=== PATIENT | female | born 1945 | race Caucasian/White ===

== ENCOUNTER 2019-03-26 10:48 | Inpatient (IN) | payer OTHER ==
[2019-03-21 12:10] LABS: HEMOGLOBIN 13.4 gm/dL (12.0-15.0); MCH 26.7 pg (26.0-34.0); MCHC 32.8 g/dL (28.0-37.0); MCV 81.4 fL (80.0-100.0); RBC 5.04 mil/uL (4.20-5.00); RDW 14.1 % (10.5-14.5); WBC 9.5 thou/uL (4.0-11.0)
[2019-03-21 12:12] LABS: URINE BILIRUBIN NEGATIVE (Negative); URINE BLOOD NEGATIVE (Negative); URINE CLARITY CLEAR; URINE COLOR YELLOW; URINE GLUCOSE-RANDOM* NEGATIVE (Negative); URINE KETONES NEGATIVE (Negative); URINE LEUKOCYTES-REFLEX TRACE (Negative); URINE NITRITE-REFLEX NEGATIVE (Negative); URINE PROTEIN (DIPSTICK) NEGATIVE (Negative); URINE UROBILINOGEN 0.2 E.U./dl (0.2-1.0)
[2019-03-21 12:19] LABS: ALBUMIN 3.8 g/dL (3.4-5.0); CALCIUM 9.7 mg/dL (8.5-10.1); CREATININE 0.9 mg/dL (0.6-1.0); POTASSIUM 4.1 mmol/L (3.5-5.1)
[2019-03-21 12:21] LABS: PROTIME 9.7 Seconds (9.3-11.4)
--- NOTE | 2019-03-23 17:51 | EKG ---
[address] [address] ELECTROCARDIOGRAM REPORT Name: SARAH FREITAS Room #: PRE IN [facility]#: [id number] Admission: Attend Phys: Eduardo Adler MD Discharge: Date of : 43 Report #: [id number] THIS REPORT FOR: //name// [facility] Test Date: 2019-03-21 Test Time: 12:11:27 Pat Name: SARAH FREITAS Department: Room: Gender: F Decker Operator: YOLA CRUZ : 1945 Requested By: Eduardo Adler Order Number: [id number] MD: Antwon Adams Measurements Intervals [place] Rate: 65 P: 89 CA: 151 QRS: 59 QRSD: 76 T: 60 QT: 391 QTc: 407 Interpretive Statements Sinus rhythm Abnormal R-wave progression, early transition No previous ECG available for comparison Electronically Signed On 03-23-2019 17:51:13 CDT by Antwon Adams [email or web address] <ELECTRONICALLY SIGNED> By: Antwon Adams MD, [facility] 03/23/19 1751 1211 1211 Antwon Adams MD, FACC /EPI
[~2019-03-26] VITALS: Ht 172.7 cm; Wt 96.2 kg
--- NOTE | ~2019-03-26 | O ---
[facility] [place] [address] OPERATIVE REPORT Name: SARAH FREITAS Room #: 418-P [facility] IN M.R.#: [id number] Admission: 03/26/19 Attend Phys: Eduardo Adler MD Discharge: Date of : 43 Report #: [id number] THIS REPORT FOR: //name// CC: KIERSTEN FERRELL Physician staff Eduardo Adler DATE OF SERVICE: 03/26/2019 PREOPERATIVE DIAGNOSIS: Left knee osteoarthritis. POSTOPERATIVE DIAGNOSIS: Left knee osteoarthritis. PROCEDURE: Left total knee arthroplasty using Navio robotic merchandising assistant. SURGEON: Eduardo Adler MD. LOCAL OWNER OPERATOR TRUCK DRIVER: Geetha Kaur PA-C. INDICATIONS FOR LOCAL OWNER OPERATOR TRUCK DRIVER: Throughout the case, extensive retraction and manipulation of the knee was required, this was afforded to me by my merchandising assistant. ANESTHESIA: LMA. IMPLANTS: Gonzalez [employer]hew size 6 Legion cobalt chrome posterior stabilized femur, size 5 tibia, size 12 polyethylene and size 35 patella. TOURNIQUET TIME: 55 minutes. ESTIMATED BLOOD LOSS: 25 mL COMPLICATIONS: None. SPECIMENS: None. CONDITION UPON LEAVING THE OPERATING ROOM: Stable. INDICATIONS FOR PROCEDURE: The patient is a 73-year-old female with severe left knee osteoarthritis. She failed conservative measures for this and after discussion with her, she elected for left total knee arthroplasty. DESCRIPTION OF PROCEDURE: Risks, benefits, alternatives, complications were discussed in detail with the patient including but not limited to risk of anesthesia, risk of damage to nerves, arteries, blood vessels, risk for infection, bleeding, risk for continued knee pain and need for reoperation. Informed consent was obtained from the patient. Left knee was appropriately [facility] [address] [place] [address] OPERATIVE REPORT Name: SARAH FREITAS Room #: 418-P [facility] IN M.R.#: [id number] Admission: 03/26/19 Attend Phys: Eduardo Adler MD Discharge: Date of : 43 Report #: [id number] marked in the preoperative holding area. IV Ancef was given for preoperative antibiotics. Adductor canal block was placed by Anesthesia. She was brought to the operating room and placed in supine position on operating room table. LMA anesthesia was induced without complication. Tourniquet was placed on the left thigh. Left lower extremity was prepped and draped in normal sterile fashion. Timeout was performed properly identifying the patient and procedure as well as the instrumentation. All in the operating room were in agreement. Left lower extremity was exsanguinated, tourniquet was inflated. Tourniquet time was 55 minutes. Standard midline approach to the knee was made with #10 blade through the skin. Dissection was taken down sharply to the fascia. Deep flaps were developed medially and laterally. Fresh #10 blade was used to make the medial parapatellar arthrotomy and the knee was inspected. There was severe tricompartmental osteoarthritis. ACL and PCL were removed sharply. Reference pins were placed in the femur and the tibia and the knee was digitally mapped using the [employer] robotic system. Intraoperative plan was made and we sized to a size 6 femur, a size 5 tibia with a size 11 spacer. After acceptance of the intraoperative plan, the distal femoral cut was made with a Navio bur. The size 6, 4-in-1 cutting block was placed. Anterior, posterior and chamfer cuts were made. Attention was then turned to the femur. The remainder of the menisci removed with Bovie cautery and the tibial resection guide was pinned in place using the Navio system for placement. Tibial resection was made. Flexion and extension gaps were then checked and found to have good balance in flexion and extension both medially and laterally. The tibia was sized, found to be a size 5. A size 5 tibial trial was placed, pinned and punched. A size 6 femoral trial was placed and the box cut was made. This was then trialed with a size 11 and then a size 12 polyethylene. The size 12 polyethylene showed a millimeter of laxity medially and laterally throughout range of motion. After this, 9 mm was taken off the posterior surface of the patella and a size 35 patellar trial button was placed. Knee was taken through range of motion, found to be stable, found to have good patellar tracking. After this, trial components were removed. Bony ends were thoroughly irrigated with normal saline. A final size 5 tibia, size 6 Legion cobalt chrome posterior stabilized femur and a size 35 patella were cemented in place using standard cementation techniques. While the cement cured, a periarticular injection consisting of morphine, ropivacaine, epinephrine and Toradol was placed around the knee joint capsule. After the cement cured, the tourniquet was deflated. Hemostasis was obtained with Bovie cautery. A final size 12 polyethylene was placed. A gram of vancomycin was placed deep in the joint. Fascia was closed with 0 Vicryl, skin was closed with 2-0 Vicryl, 3-0 Monocryl, Dermabond and a ABDIEL dressing was applied. The patient tolerated this procedure well and went to the recovery room under care of Anesthesia postoperatively. By: [id number] Eduardo Adler MD /raysa
[~2019-03-26 10:48] MED LIST: CALCIUM 600 +1 EAC1 PO; PEPCID AC10 MG PO; SERTRALINE HCL50 MG PO; SIMVASTATIN40 MG PO; SYNTHROID25 MC1 PO; TRIAMTERENE-HC1 EAC2 PO; VITAMIN D32000 UNI1 PO
[2019-03-26 12:38] VITALS: BP 144/67
[2019-03-26 16:26] VITALS: BP 122/52
--- NOTE | 2019-03-26 18:35 | NUR ---
ASSUMED CARE AT 1600, SHIFT ASSESSMENT DONE, MEDS GIVEN, VSS. REPORTED PAIN, PRN PAIN MEDS GIVEN. ON REGUALR DIET, TOLERATING WELL. ON 2L NC. ABDIEL DRESSING TO LEFT KNEE C/D/I. WILL CONTINUE TO ASSESS AND ASSIST WITH ADLs NEEDED.
[2019-03-26 20:10] VITALS: BP 150/66
[2019-03-26 20:30] VITALS: BP 150/66
[2019-03-27 00:01] VITALS: BP 127/61
--- NOTE | 2019-03-27 04:22 | NUR ---
Assumed pt care at 1900. Pt is A/OX4,VSS.Up with AX1 to BSC without difficulties. WBAT to LLE.ABDIEL dsg in place C/D/I.C/o pain to left knee LOP at 7 medicated with oxycodone with relief reported.Has an inspire stimulator in place,resting quietly with no distress at this time will continue to monitor pt. Call light/personal items within reach.
[2019-03-27 05:03] VITALS: BP 127/59
[2019-03-27 05:48] LABS: HEMATOCRIT 35.6 % (37.0-47.0); HEMOGLOBIN 11.3 gm/dL (12.0-15.0); MCH 26.4 pg (26.0-34.0); MCHC 31.8 g/dL (28.0-37.0); MCV 82.8 fL (80.0-100.0); RBC 4.31 mil/uL (4.20-5.00); RDW 13.7 % (10.5-14.5)
[2019-03-27] MEDS ORDERED: ASPIR 8181 MG PO (10:37)
--- NOTE | 2019-03-27 11:34 | NUR ---
ASSUMED CARE AT 0700, SHIFT ASSESSMENT DONE, MEDS GIVEN, VSS. REPORTED PAIN, PRN PAIN MEDS GIVEN. WORKED WITH PHYSICAL THERAPHY, WALKED IN THE HALLWAY, SITTING UP IN THE CHAIR. POSSIBLE DISCHARGE TODAY. WILL CONTINUE TO ASSESS AND ASSIST WITH ADLs NEEDED.
[2019-03-27 14:35] VITALS: BP 127/59
--- NOTE | 2019-03-27 15:24 | NUR ---
ASSESSMENT-PT LIVES AT HOME WITH HER . BOTH WERE INDEPENDENT OF ADLS AND AMBULATION PRIOR TO ADMISSION. BOTH DRIVE. PT PLANS TO DC HOME SOON AND NEEDS A ROLLER WALKER FOR HOME. OFFERED OPTIONS AND SHE CHOSE [employer]. PT PLANS TO START OUTPT THERAPY TOMORROW OR NEXT DAY AT [facility] IN [place]. PT WILL CALL TO SCHEDULE AN APPT. NO OTHER DC NEEDS IDENTIFIED AT THIS TIME.
== END 2019-03-27 15:31 | disposition home or self-care (01) | DRG 470 ==
LOC: TBA 10:48 → 4E 10:48 → PRE 11:08 → 4E 16:20
PROVIDERS: ADMIT Orthopaedic Surgery
PROC: 0SRD0J9 Replacement of Left Knee Joint with Synthetic Substitute, Cemented, Open Approach (ICD-10-PCS; principal; 2019-03-26)
PROC: 8E0Y0CZ Robotic Assisted Procedure of Lower Extremity, Open Approach (ICD-10-PCS; 2019-03-26)
DX: M17.12 Unilateral primary osteoarthritis, left knee (principal); E78.00 Pure hypercholesterolemia, unspecified; E03.9 Hypothyroidism, unspecified; K21.9 Gastro-esophageal reflux disease without esophagitis; F32.9 Major depressive disorder, single episode, unspecified; G47.30 Sleep apnea, unspecified; Z90.710 Acquired absence of both cervix and uterus; Z88.2 Allergy status to sulfonamides; Z88.8 Allergy status to other drugs, medicaments and biological substances; Z79.899 Other long term (current) drug therapy
CPT/HCPCS: 10783; 50010; 50101; 50415; 50954; 51130; 51225; 53000; 53078; 53364; 54118; 56527; 56528; 57095; 57103; 57110; 57127; 57180; 62110; 62900; 65060; 70005

== ENCOUNTER 2019-04-05 09:37 | Day surgery (SDC) | payer OTHER ==
[~2019-04-05] VITALS: Ht 175.3 cm; Wt 97.1 kg
--- NOTE | ~2019-04-05 | O ---
[facility] [place] [address] OPERATIVE REPORT Name: SARAH FREITAS Room #: 150-5 [facility] M.R.#: [id number] Admission: 04/05/19 Attend Phys: Eduardo Adler MD Discharge: Date of : 43 Report #: [id number] THIS REPORT FOR: //name// CC: KIERSTEN FERRELL Physician staff Eduardo Adler DATE OF SERVICE: 04/05/2019 PREOPERATIVE DIAGNOSIS: Left total knee arthroplasty hematoma. POSTOPERATIVE DIAGNOSIS: Left total knee arthroplasty hematoma. PROCEDURE: Evacuation of left knee hematoma, status post total knee arthroplasty. SURGEON: Eduardo Adler MD ANESTHESIA: LMA. ESTIMATED BLOOD LOSS: 25 mL. COMPLICATIONS: None. SPECIMENS: None. CONDITION UPON LEAVING THE OPERATING ROOM: Stable. INDICATIONS FOR PROCEDURE: The patient is a 73-year-old female about a week out from a left total knee arthroplasty. She has had persistent bloody drainage from her incision and an exam consistent with hematoma. After discussion with her, she elected for evacuation of her left knee hematoma. DESCRIPTION OF PROCEDURE: Risks, benefits, alternatives, complications were discussed in detail with the patient including but not limited to risk of anesthesia, risk of damage to nerves, arteries, blood vessels, risk for infection, bleeding, risk for continued drainage and need for reoperation. Informed consent was obtained from the patient. Left knee was appropriately marked in the preoperative holding area. IV Ancef was given for preoperative antibiotics. She was brought to the operating room and placed in supine position on the operating room table. LMA anesthesia was induced without complication. Left lower extremity was prepped and draped in normal sterile fashion. Timeout was performed properly identifying the patient and procedure as well as the instrumentation. All in the operating room were in agreement. Previous incision was then opened with #10 blade. Upon entering the cutaneous layer, there was noted to be a large hematoma that was ____. This was [facility] [address] [place] [address] OPERATIVE REPORT Name: SARAH FREITAS Room #: 150-5 [facility]#: [id number] Admission: 04/05/19 Attend Phys: Eduardo Adler MD Discharge: Date of : 43 Report #: [id number] evacuated. The fascial closure was intact ____ knee was then thoroughly irrigated with normal saline. A deep drain was placed in the adipose layer. Skin was closed with 2-0 Vicryl and skin mac. ABDIEL dressing was applied. The patient tolerated this procedure well and went to recovery room under care of anesthesia postoperatively. By: [id number] Eduardo Adler MD /nt
[~2019-04-05 09:37] MED LIST changes: +ASPIR 8181 MG PO
[2019-04-05 10:44] VITALS: BP 137/60
[2019-04-05 14:49] VITALS: BP 137/60
== END 2019-04-05 13:25 | disposition home or self-care (01) ==
LOC: OR 09:37 → TBA 09:37 → OR 13:25
DX: M96.840 Postprocedural hematoma of a musculoskeletal structure following a musculoskeletal system procedure (principal); M17.12 Unilateral primary osteoarthritis, left knee; Z96.652 Presence of left artificial knee joint; Z88.2 Allergy status to sulfonamides; Z88.8 Allergy status to other drugs, medicaments and biological substances; Z79.899 Other long term (current) drug therapy; Z98.890 Other specified postprocedural states
CPT/HCPCS: 50010; 50101; 50415; 50954; 51412; 53078; 56528; 57095; 57103; 57116

== ENCOUNTER 2019-07-09 07:05 | Inpatient (IN) | payer OTHER ==
[2019-06-27 13:21] LABS: URINE BILIRUBIN NEGATIVE (Negative); URINE BLOOD NEGATIVE (Negative); URINE CLARITY CLEAR; URINE COLOR YELLOW; URINE GLUCOSE-RANDOM* NEGATIVE (Negative); URINE KETONES NEGATIVE (Negative); URINE LEUKOCYTES-REFLEX NEGATIVE (Negative); URINE NITRITE-REFLEX NEGATIVE (Negative); URINE PROTEIN (DIPSTICK) NEGATIVE (Negative); URINE SPECIFIC GRAVITY 1.015 (1.005-1.035); URINE UROBILINOGEN 0.2 E.U./dl (0.2-1.0)
[2019-06-27 13:23] LABS: HEMATOCRIT 40.1 % (37.0-47.0); HEMOGLOBIN 12.7 gm/dL (12.0-15.0); MCH 26.1 pg (26.0-34.0); MCHC 31.6 g/dL (28.0-37.0); MCV 82.7 fL (80.0-100.0); RBC 4.85 mil/uL (4.20-5.00); RDW 15.3 % (10.5-14.5)
[2019-06-27 13:32] LABS: CALCIUM 9.7 mg/dL (8.5-10.1); CREATININE 0.9 mg/dL (0.6-1.0); POTASSIUM 3.8 mmol/L (3.5-5.1)
[2019-06-27 13:34] LABS: PROTIME 9.9 Seconds (9.3-11.4)
[~2019-07-09] VITALS: Ht 152.4 cm; Wt 96.2 kg
[~2019-07-09 07:05] MED LIST changes: +ASA81BEC PO; +NEURONTIN 300300 M1 PO; +NORCO 5-325 TA1 EAC1 PO
[2019-07-09 08:00] VITALS: BP 122/56
--- NOTE | 2019-07-09 15:17 | NUR ---
I have reviewed the documentation by SIMONE VAUGHAN from 07/09/19 to 07/09/19 and I concur with it. YUDELKA SANDOVAL
--- NOTE | 2019-07-09 15:30 | NUR ---
INITIAL ASSESSMENT: Pt evaluated for d/c planning needs. Reviewed chart and spoke with nurse and pt. Pt is alert and oriented. Pt lives in house with spouse. Pt had right knee replacement surgery in March. Pt has walker in her room. Pt plans on returning home on d/c from hospital. Pt has outpatient PT scheduled for Tuesday. Will remain available to assist as needed.
[2019-07-09 19:50] VITALS: BP 109/56
--- NOTE | 2019-07-09 21:32 | NUR ---
ASSESSMENT COMPLETED. PT IS ALERT AND ORIENTED.PLEASANT MOOD. MAKES NEEDS KNOWN. AFEBRILE. R KNEE WITH ABDIEL DRSG AND POLAR LEON IN PLACE. SCDS ALSO IN PLACE. PT DENIES ANY NAUSEA OR VOMITING. IV FLUIDS INFUSING. NO FURTHER CONCERNS AT THIS TIME.
[2019-07-10 03:45] VITALS: BP 114/58
[2019-07-10 06:11] LABS: HEMATOCRIT 36.5 % (37.0-47.0); HEMOGLOBIN 11.4 gm/dL (12.0-15.0); MCH 25.6 pg (26.0-34.0); MCHC 31.1 g/dL (28.0-37.0); MCV 82.5 fL (80.0-100.0); RBC 4.43 mil/uL (4.20-5.00); RDW 15.1 % (10.5-14.5); WBC 14.7 thou/uL (4.0-11.0)
[2019-07-10 07:10] VITALS: BP 119/54
--- NOTE | 2019-07-10 10:00 | O ---
[facility] [place] [address] OPERATIVE REPORT Name: SARAH FREITAS Room #: 441-P [facility] IN M.R.#: [id number] Admission: 07/09/19 Attend Phys: Eduardo Adler MD Discharge: Date of : 43 Report #: [id number] THIS REPORT FOR: //name// CC: KIERSTEN FERRELL Physician staff Eduardo Adler DATE OF SERVICE: 07/09/2019 PREOPERATIVE DIAGNOSIS: Right knee osteoarthritis. POSTOPERATIVE DIAGNOSIS: Right knee osteoarthritis. PROCEDURE: Right total knee arthroplasty using Navio robotic assistance. SURGEON: Eduardo Adler MD. SILVER CLEANER: Geetha Kaur PA-C. INDICATIONS FOR SILVER CLEANER: Throughout the case, extensive retraction and manipulation of the knee was required. This was afforded to me by my assistant professor of surgery. ANESTHESIA: LMA with an adductor canal block. IMPLANTS: [employer] Nephew size 6 narrow Legion cobalt chrome posterior stabilized femur, size 5 tibia, size 32 patella and size 11 polyethylene. TOURNIQUET TIME: 54 minutes. ESTIMATED BLOOD LOSS: 25 mL. COMPLICATIONS: None. SPECIMENS: None. CONDITION UPON LEAVING THE OPERATING ROOM: Stable. INDICATIONS FOR PROCEDURE: The patient is a 73-year-old female with right knee osteoarthritis who failed conservative measures for this and after discussion with her, she elected for right total knee arthroplasty. DESCRIPTION OF PROCEDURE: Risks, benefits, alternatives, complications were discussed in detail with the patient including but not limited to risk of anesthesia, risk of damage to nerves, arteries, blood vessels, risk for infection, bleeding, risk for continued knee pain, need for reoperation. Informed consent was obtained from the patient. Right knee was appropriately [facility] [address] [place] [address] OPERATIVE REPORT Name: SARAH FREITAS Geoffrey Room #: 441-P [facility] IN .R.#: [id number] Admission: 07/09/19 Attend Phys: Eduardo Adler MD Discharge: Date of : 43 Report #: [id number] marked in the preoperative holding area. IV Ancef was given for preoperative antibiotics. Adductor canal block was placed by Anesthesia. She was brought to the operating room and placed in supine position on operating room table. General anesthesia was induced without complication. Tourniquet was placed on the right thigh. Right lower extremity was prepped and draped in normal sterile fashion. Timeout was performed properly identifying the patient and procedure as well as the instrumentation and implants. All in the operating room were in agreement. Right lower extremity was exsanguinated, tourniquet was inflated. Tourniquet time was 54 minutes. Standard midline approach to the knee was made with 10 blade through the skin. Dissection was taken down sharply to the fascia and deep flaps were developed medially and laterally. Fresh 10 blade was used to make a medial parapatellar arthrotomy and the knee was inspected. There was significant tricompartmental osteoarthritis. ACL and PCL were removed sharply. Reference pins were placed in the femur and the tibia and the knee was then digitally mapped using the [employer] robotic system. Intraoperative plan was made and we sized the size 6 narrow femur, a size 5 tibia and a size 11 spacer. After acceptance of the intraoperative plan, the distal femoral cut was made with a Navio bur. The 4-in-1 cutting block was then placed and the anterior, posterior and chamfer cuts were made. Attention was turned to the tibia. Remainder of the menisci removed with Bovie cautery. Tibial resection guide was pinned in place using the Navio for placement. Tibial resection was made. Flexion and extension gaps were then checked and found to have good balance in flexion and extension both medially and laterally. Tibia was sized, found to be a size 5. A size 5 tibial trial was placed, pinned and punched. Size 6 narrow femoral trial was placed and a box cut was made. This was then trialed with a size 11 polyethylene. Knee was taken through range of motion, found to have good stability and tension medially and laterally, both digitally as well as manually. After this, 9 mm was removed from the posterior surface of the patella and a size 32 patellar trial button was placed. Knee was taken through range of motion, found to be stable, found to have good patellar tracking. Trial components were removed. Bony ends were thoroughly irrigated with normal saline. A final size 5 tibia, size 6 narrow Legion cobalt chrome posterior stabilized femur and size 32 patella were cemented in place using standard cementation techniques. While the cement cured, a periarticular injection consisting of morphine, ropivacaine, epinephrine and Toradol was placed around the knee joint capsule. After the cement cured, the tourniquet was deflated. Hemostasis was obtained with Bovie cautery. Final size 11 polyethylene was placed. A gram of vancomycin was placed deep in the joint. Fascia was closed with 0 Vicryl, skin was closed with 2-0 Vicryl, skin staple and a ABDIEL dressing was applied. The patient tolerated this procedure well and went to recovery room under care of anesthesia postoperatively. <ELECTRONICALLY SIGNED> By: Eduardo Adler MD 07/10/19 1000 1610 1639 Eduardo Adler MD /nt
--- NOTE | 2019-07-10 11:17 | NUR ---
PT UP AMBULATING THE HALLS WITH THERAPY WAS GIVEN PRN PAIN MED THIS MORNING. NO RESP DISTRESS AT PRESENT.
[2019-07-10] MEDS ORDERED: ASA81BEC PO (11:54)
--- NOTE | 2019-07-10 12:43 | NUR ---
I have reviewed the documentation by SIMONE VAUGHAN from 07/10/19 to 07/10/19 and I concur with it. ARMANDO COHEN
[2019-07-10 13:18] VITALS: BP 119/54
[2019-07-10 13:26] VITALS: BP 119/54
[2019-07-10 14:20] VITALS: BP 119/54
--- NOTE | 2019-07-10 14:53 | NUR ---
DISCHARGE PAPERS GONE OVER WITH PATIENT SIGNED AND COPY IN CHART. IV ACSESS DCD RX'S GIVEN TO PATIENT FOLDER WITH PICCO AND POLAR PACK INFO GIVEN TO PATIENT. PT W/O PAIN OR RESP DISTRESS AT DISCHARGE. SPOUSE AT BEDSIDE TO TAKE PATIENT HOME. ALL BELONGINGS PACKED AND SENT WITH PATIENT,
== END 2019-07-10 15:08 | disposition home or self-care (01) | DRG 470 ==
LOC: TBA 07:05 → 4S 07:05 → PRE 08:10 → 4S 14:00 → TBA 15:33 → ENTRNSPT 07-10 14:30 → 4S 07-10 15:08
PROVIDERS: ADMIT Orthopaedic Surgery
PROC: 0SRC0J9 Replacement of Right Knee Joint with Synthetic Substitute, Cemented, Open Approach (ICD-10-PCS; principal; 2019-07-09)
PROC: 8E0Y0CZ Robotic Assisted Procedure of Lower Extremity, Open Approach (ICD-10-PCS; principal; 2019-07-09)
DX: M17.11 Unilateral primary osteoarthritis, right knee (principal); Z88.2 Allergy status to sulfonamides; Z88.8 Allergy status to other drugs, medicaments and biological substances
CPT/HCPCS: 10102; 50010; 50101; 50415; 50954; 51130; 51225; 51320; 51412; 52001; 52282; 53000; 53078; 53364; 54118; 56527; 56528; 57095; 57103; 57110; 57127; 57180; 62110; 62900; 64042; 70005